=== PATIENT | female | born 1955 | race Two or more races ===

== ENCOUNTER 2016-09-13 21:42 | Emergency (ER) | payer SELFPAY ==
[~2016-09-13] VITALS: Ht 165.1 cm; Wt 56.7 kg
--- NOTE | 2016-09-13 21:45 | NUR ---
61 YO MALE BB RA FROM HOME, C/O GENERALIZED WEAKNESS X 1 WK. PT STATES SHE HAD AN EPISODE OF HEART PALPITATIONS, CALLED EMS FOR EVAL. SKIN WARM AND DRY, RR EVEN AND UNLABORED. PT AMBULATED TO ER BED WITH STEADY GAIT, AWAITING ORDERS FROM PROVIDER
[2016-09-13] MEDS ORDERED: BACL10TA PO (22:04)
[2016-09-13] MEDS ORDERED: HYDR25TA4 PO (22:04)
[2016-09-13] MEDS ORDERED: TRAM50TA2 PO (22:06)
[2016-09-13] MEDS ORDERED: CYAN500T4 PO (22:06)
[2016-09-13] MEDS ORDERED: DOCU-25 PO (22:06)
[2016-09-13] MEDS ORDERED: LORA10CA PO (22:06)
[2016-09-13] MEDS ORDERED: FLUO20CA36 PO (22:06)
[2016-09-13] MEDS ORDERED: HYDR-4076 PO (22:06)
[2016-09-13] MEDS ORDERED: AMLO10TA2 PO (22:06)
--- NOTE | 2016-09-13 22:10 | NUR ---
20G LEFT WRIST IV STARTED, BLOOD SAMPLE OBTAINED AND SENT TO LAB
[2016-09-13] MEDS ORDERED: IV NS 0.9% 1,000 ML ONE (23:09)
[2016-09-13] MEDS ORDERED: IV SET PRIMARY 1 EA INFUS.SET MC ONE (23:09)
[2016-09-13 23:17] LABS: BASOPHILS # (AUTO) 0.1 /CMM (0.0-0.2); BASOPHILS % (AUTO) 1.2 % (0.0-2.0); EOSINOPHILS # (AUTO) 0.1 /CMM (0.0-0.7); EOSINOPHILS % (AUTO) 1.4 % (0.0-6.0); HEMATOCRIT 41 % (33-45); HEMOGLOBIN 13.5 g/dL (11.5-14.8); LYMPHOCYTES # (AUTO) 2.5 /CMM (0.8-4.8); LYMPHOCYTES % (AUTO) 36.1 % (20.0-44.0); MEAN CORPUSCULAR HEMOGLOBIN 32 PG (26.0-33.0); MEAN CORPUSCULAR HGB CONC 33 g/dl (31.0-36.0); MEAN CORPUSCULAR VOLUME 96 fL (82-100); MONOCYTES # (AUTO) 0.5 /CMM (0.1-1.30); MONOCYTES % (AUTO) 6.9 % (2.0-12.0); NEUTROPHILS # (AUTO) 3.7 /CMM (1.8-8.9); NEUTROPHILS % (AUTO) 54.4 % (43.0-81.0); PLATELET COUNT (AUTO) 297 /CMM (150-450); RDW COEFFICIENT OF VARIATION 13.4 (11.5-15.0); RED BLOOD CELL COUNT(AUTO) 4.21 MIL/uL (4.0-5.2); WHITE BLOOD COUNT (AUTO) 6.8 K/uL (4.3-11.0)
[2016-09-13 23:27] LABS: CALCIUM, SERUM 8.6 mg/dL (8.5-10.1); CARBON DIOXIDE 24 mmol/L (21-32); CHLORIDE 98 mmol/L (98-107); CREATININE 0.6 mg/dL (0.6-1.3); GFR 101 mL/min (>60); GLUCOSE 81 mg/dL (74-106); POTASSIUM 3.9 mmol/L (3.5-5.1); SODIUM SERUM 136 mmol/L (136-145); UREA NITROGEN, BLOOD 7 mg/dL (7-18)
[2016-09-13] MEDS ORDERED: IV NS 0.9% 1,000 ML BAG IV ONE (23:30)
[2016-09-13 23:31] LABS: INR 0.89 (0.87-1.13); PROTHROMBIN TIME 9.4 SECS (9.5-12.7)
[2016-09-13 23:36] LABS: TROPONIN I < 0.017 ng/mL (0.00-0.056)
[2016-09-14 00:18] VITALS: BP 123/79
--- NOTE | 2016-09-14 00:18 | NUR ---
Patient discharged to home in stable condition. Written and verbal after care instructions given. Patient verbalizes understanding of instruction.IV removed. Catheter intact and site benign. Pressure and 4x4 applied to site. No bleeding noted. pt ambulatory with a steady gait VITAL SIGNS WITHIN NORMAL LIMITS.
== END 2016-09-14 00:19 | disposition home or self-care (01) ==
LOC: ER 21:46
DX: R07.89 Other chest pain (principal); I10 Essential (primary) hypertension; Z88.1 Allergy status to other antibiotic agents; Z88.8 Allergy status to other drugs, medicaments and biological substances
CPT/HCPCS: 36415; 71010; 80048; 83690; 84484; 85025; 85730; 93005; 96360; 99285; A4606; J7030; Z7610

== ENCOUNTER 2016-11-02 20:20 | Inpatient (IN) | payer MEDICAID ==
[~2016-11-02] VITALS: Ht 170.2 cm; Wt 61.7 kg
[2016-11-02 20:00] VITALS: BP 85/57
[~2016-11-02 20:20] MED LIST: AMLO10TA2 PO; BACL10TA PO; CYAN500T4 PO; DOCU-25 PO; FLUO20CA36 PO; HYDR-4076 PO; HYDR25TA4 PO; LORA10CA PO; TRAM50TA2 PO
--- NOTE | 2016-11-02 20:20 | NUR ---
61 YO FEMALE BB RA. PT IS ALERT X 3, STATES SHES BEEN FEELING WEAK AND DIZZY FOR THE PAST WEEK. PT DS TO ER BED, SKIN WARM AND DRY, RR EVEN AND UNLABORED. AWAITING ORDERS FROM VIRGILFILIBERTO
[2016-11-02] MEDS ORDERED: IV SET PRIMARY 1 EA INFUS.SET MC ONE (20:27)
[2016-11-02] MEDS ORDERED: IV NS 0.9% 1,000 ML ONE (20:27)
[2016-11-02] MEDS ORDERED: IV NS 0.9% 1,000 ML BAG IV ONE (20:30)
[2016-11-02] MEDS ORDERED: ONDANSETRON HCL/PF 4 MG/2 ML VIAL ONE (20:35)
[2016-11-02] MEDS ORDERED: LORAZEPAM INJ 2 MG/ML VIAL ONE (20:35)
--- NOTE | 2016-11-02 20:45 | NUR ---
MEDICATED PT ORDERED
[2016-11-02 20:46] LABS: BASOPHILS # (AUTO) 0.1 /CMM (0.0-0.2); BASOPHILS % (AUTO) 0.5 % (0.0-2.0); EOSINOPHILS % (AUTO) 0.4 % (0.0-6.0); HEMATOCRIT 39 % (33-45); HEMOGLOBIN 13.6 g/dL (11.5-14.8); LYMPHOCYTES # (AUTO) 1.7 /CMM (0.8-4.8); LYMPHOCYTES % (AUTO) 13.2 % (20.0-44.0); MEAN CORPUSCULAR HEMOGLOBIN 34 PG (26.0-33.0); MEAN CORPUSCULAR HGB CONC 35 g/dl (31.0-36.0); MEAN CORPUSCULAR VOLUME 97 fL (82-100); MONOCYTES # (AUTO) 0.7 /CMM (0.1-1.30); MONOCYTES % (AUTO) 5.7 % (2.0-12.0); NEUTROPHILS % (AUTO) 80.2 % (43.0-81.0); PLATELET COUNT (AUTO) 370 /CMM (150-450); RDW COEFFICIENT OF VARIATION 12.2 (11.5-15.0); WHITE BLOOD COUNT (AUTO) 12.5 K/uL (4.3-11.0)
[2016-11-02] MEDS ORDERED: LORAZEPAM INJ 2 MG/ML VIAL IV ONE (21:00)
[2016-11-02] MEDS ORDERED: ONDANSETRON HCL/PF - ER 4 MG/2 ML VIAL IV ONE (21:00)
[2016-11-02 21:06] LABS: INR 0.94 (0.87-1.13)
--- NOTE | 2016-11-02 21:10 | NUR ---
PT TRANSPORTED TO CT VIA [facility]
[2016-11-02 21:14] LABS: ALCOHOL, BLOOD 4 mg/dL (0-0)
[2016-11-02 21:20] LABS: ALANINE AMINOTRANSFERASE 152 U/L (12-78); ALBUMIN 3.8 g/dL (3.4-5.0); ALKALINE PHOSPHATASE 109 U/L (46-116); ASPARTATE AMINOTRANSFERASE 102 U/L (15-37); BILIRUBIN,DIRECT 0.1 mg/dL (0.0-0.2); BILIRUBIN,TOTAL 0.4 mg/dL (0.2-1.0); CALCIUM, SERUM 8.8 mg/dL (8.5-10.1); CARBON DIOXIDE 23 mmol/L (21-32); CHLORIDE 81 mmol/L (98-107); CREATININE 0.8 mg/dL (0.6-1.3); GLUCOSE 107 mg/dL (74-106); SODIUM SERUM 122 mmol/L (136-145); TOTAL PROTEIN, SERUM 6.7 g/dL (6.4-8.2); UREA NITROGEN, BLOOD 5 mg/dL (7-18)
[2016-11-02 21:22] LABS: TROPONIN I < 0.017 ng/mL (0.00-0.056)
[2016-11-02 21:23] LABS: POTASSIUM 2.2 mmol/L (3.5-5.1)
[2016-11-02] MEDS ORDERED: IV PREMIX 0.45% NS + KCL 1,000 ML IV ONE (21:28)
[2016-11-02] MEDS ORDERED: Magnesium 1GM/D5W 100ML PREMIX 100 ML IV ONE ×2 (21:30→21:41)
[2016-11-02] MEDS ORDERED: IV PREMIX D5 1/2NS + KCL 1,000 ML IV ONE (21:40)
[2016-11-02] MEDS ORDERED: HYDROCODONE/APAP 5/325MG 1 EACH TABLET ONE (21:40)
[2016-11-02] MEDS ORDERED: IV SET PRIMARY PUMP SET 1 EA INFUS.SET MC ONE (21:40)
--- NOTE | 2016-11-02 21:44 | NUR ---
DR. YVONNE GONZALEZ
[2016-11-02 21:47] LABS: CREATINE KINASE, TOTAL 43 U/L (26-192)
[2016-11-02] MEDS ORDERED: HYDROCODONE/APAP 5/325MG 1 EACH TABLET PO ONE (22:00)
--- NOTE | 2016-11-02 22:02 | NUR ---
PT TRANSPORTED TO TELE BED BY RN WITHOUT INCIDENT
[2016-11-02 22:04] VITALS: BP 88/57
--- NOTE | 2016-11-02 22:04 | NUR ---
HEAD CONTROL CLERK NOTES: RECEIVED PT FROM ED AND IS A/O X4. PT CAME WITH IV ON R HAND #20G AND IS BEING INFUSED WITH IV PREMIX 1/2 NS + 20 MEQ KCL 1,000ML AT 125ML/HR. CALL LIGHT WITHIN PT'S REACH. BED KEPT IN LOCKED, LOWEST POSITION, AND SIDE RAILS X 2 UP. NO SIGNS OR SYMPTOMS OF DISTRESS NOTED AT THIS TIME. WILL CONTINUE TO MONITOR PT. PT IS ON TELE AND IS SINUS RHYTHM 74.
[2016-11-02 22:30] VITALS: BP 85/57
[2016-11-02] MEDS ORDERED: MAG HYDROX/AL HYDROX/SIMETH 30 ML UDC PO PRN (22:30)
[2016-11-02] MEDS ORDERED: ZOLPIDEM TARTRATE 5 MG TABLET PO PRN (22:30)
[2016-11-02] MEDS ORDERED: Z GUARD REMEDY 2 OZ OINT TP PRN (22:30)
[2016-11-02] MEDS ORDERED: BACLOFEN (10 MG) 10 MG TABLET PO PRN (22:30)
[2016-11-02] MEDS ORDERED: ENOXAPARIN SODIUM 40 MG/0.4 ML DISP.SYRIN SQ SCH (22:30)
[2016-11-02] MEDS ORDERED: ACETAMINOPHEN 325 MG TABLET PO PRN (22:30)
[2016-11-02] MEDS ORDERED: MAGNESIUM HYDROXIDE 30 ML UDC PO PRN (22:30)
[2016-11-02] MEDS ORDERED: LORAZEPAM 1 MG TABLET ONE (22:46)
[2016-11-02] MEDS: LORAZEPAM 1 MG TABLET PO PRN (22:55)
[2016-11-02] MEDS ORDERED: ENOXAPARIN SODIUM 40 MG/0.4 ML DISP.SYRIN SQ ONE (23:40)
[2016-11-03] VITALS (7 sets, daily range): BP systolic 92–126; BP diastolic 47–74
[2016-11-03] MEDS ORDERED: hydrALAZINE HCL 25 MG TABLET PO PRN
--- NOTE | 2016-11-03 00:47 | NUR ---
APPLIANCE TECHNICIAN NOTES: IV ON R HAND #20G WAS FOUND DISLODGED. NO INFILTRATION OR REDNESS NOTED. IV ON L HAND #22G WAS STARTED AND IS PATENT AND INTACT. IT IS BEING INFUSED WITH IV PREMIX 1/2 NS + 20MEQ KCL 1,000ML AT 125ML/HR. WILL CONTINUE TO MONITOR PT.
[2016-11-03] MEDS ORDERED: HYDROCODONE/APAP 5/325MG 1 EACH TABLET ONE (02:59)
[2016-11-03] MEDS: HYDROCODONE/APAP 5/325MG 1 EACH TABLET PO PRN ×3 (03:05→14:36)
--- NOTE | 2016-11-03 03:05 | NUR ---
AUTOMOTIVE LIGHT MECHANIC NOTES: PT COMPLAINED OF 7/10 HEAD AND NAPE PAIN. PT REQUESTED FOR PAIN MEDICATION. PT WAS ADMINISTERED NORCO 5-325MG. WILL CONTINUE TO MONITOR PT.
[2016-11-03] MEDS: TRAMADOL HCL 50 MG TABLET PO SCH ×3 (05:00→21:00)
--- NOTE | 2016-11-03 05:00 | NUR ---
PROVINCE ARCHIVIST NOTES: PT REFUSED THE TRAMADOL AND ALSO REPORTED THAT SHE MAY BE ALLERGIC TO IT D/T PAST EXPERIENCE.
[2016-11-03] MEDS ORDERED: TRAMADOL HCL 50 MG TABLET ONE (05:53)
[2016-11-03] MEDS ORDERED: LORAZEPAM 1 MG TABLET ONE (06:04)
[2016-11-03] MEDS: LORAZEPAM 1 MG TABLET PO PRN ×3 (06:14→20:46)
--- NOTE | 2016-11-03 06:14 | NUR ---
BIZTALK DEVELOPER NOTES: PT REQUESTED FOR HER ATIVAN D/T ANXIETY. WILL CONTINUE TO MONITOR PT.
[2016-11-03 06:46] LABS: BASOPHILS # (AUTO) 0.1 /CMM (0.0-0.2); EOSINOPHILS # (AUTO) 0.1 /CMM (0.0-0.7); EOSINOPHILS % (AUTO) 0.8 % (0.0-6.0); HEMATOCRIT 35 % (33-45); HEMOGLOBIN 12.4 g/dL (11.5-14.8); LYMPHOCYTES # (AUTO) 1.4 /CMM (0.8-4.8); LYMPHOCYTES % (AUTO) 17.3 % (20.0-44.0); MEAN CORPUSCULAR HEMOGLOBIN 34 PG (26.0-33.0); MEAN CORPUSCULAR HGB CONC 35 g/dl (31.0-36.0); MEAN CORPUSCULAR VOLUME 97 fL (82-100); MONOCYTES # (AUTO) 0.4 /CMM (0.1-1.30); MONOCYTES % (AUTO) 5.5 % (2.0-12.0); NEUTROPHILS % (AUTO) 75.4 % (43.0-81.0); PLATELET COUNT (AUTO) 321 /CMM (150-450); RDW COEFFICIENT OF VARIATION 12.3 (11.5-15.0); RED BLOOD CELL COUNT(AUTO) 3.63 MIL/uL (4.0-5.2)
[2016-11-03 07:06] LABS: ALBUMIN 3.2 g/dL (3.4-5.0); BILIRUBIN,TOTAL 0.4 mg/dL (0.2-1.0); CALCIUM, SERUM 7.9 mg/dL (8.5-10.1); CREATININE 0.8 mg/dL (0.6-1.3); MAGNESIUM 1.7 mg/dL (1.8-2.4); PHOSPHORUS 1.8 mg/dL (2.5-4.9); TOTAL PROTEIN, SERUM 5.7 g/dL (6.4-8.2)
[2016-11-03] MEDS: PANTOPRAZOLE 40 MG TABLET.DR PO SCH (07:30)
--- NOTE | 2016-11-03 07:35 | NUR ---
WEAPONS DESIGNER CLOSING NOTES: ALL NEEDS WERE ATTENDED AND ANTICIPATED FOR. NO SIGNS OR SYMPTOMS OF DISTRESS NOTED AT THIS TIME. PT'S IV IS PATENT AND INTACT. PT IS ON TELE AND IS ON SINUS RHYTHM 70. CALL LIGHT WITHIN PT'S REACH. BED KEPT IN LOCKED, LOWEST POSITION, AND SIDE RAILS X 2 UP. ENDORSED TO AM NURSE FOR BERTRAND.
--- NOTE | 2016-11-03 07:40 | NUR ---
RECEIVED PT. ALERT AND ORIENTED X 4,A LITTLE SLUGGISH.ON RM. AIR VS STABLE.
[2016-11-03 07:42] LABS: POTASSIUM 2.2 mmol/L (3.5-5.1)
[2016-11-03] MEDS ORDERED: IV NS 0.9% 250 ML IV ONE (07:54)
[2016-11-03] MEDS ORDERED: IV SET PRIMARY PUMP SET 1 EA INFUS.SET MC ONE ×2 (07:55→10:37)
[2016-11-03] MEDS: MULTIVITAMINS W-MINERALS 1 TAB TABLET PO SCH (08:58)
[2016-11-03] MEDS: CYANOCOBALAMIN 500 MCG TABLET PO SCH (08:58)
[2016-11-03] MEDS: FOLIC ACID 1 MG TABLET PO SCH (08:59)
[2016-11-03] MEDS: FLUOXETINE HCL 20 MG CAPSULE PO SCH (08:59)
[2016-11-03] MEDS ORDERED: AMLODIPINE BESYLATE 10 MG TABLET PO SCH (09:00)
[2016-11-03] MEDS ORDERED: hydrALAZINE HCL 25 MG TABLET PO SCH (09:00)
[2016-11-03] MEDS ORDERED: HYDROCHLOROTHIAZIDE 25 MG TABLET PO SCH (09:00)
[2016-11-03] MEDS: METOPROLOL TARTRATE 25 MG TABLET PO SCH ×2 (09:00→21:00)
[2016-11-03] MEDS: THIAMINE HCL 100 MG TABLET PO SCH (09:01)
[2016-11-03] MEDS: DOCUSATE SODIUM 100 MG CAPSULE PO SCH ×2 (09:01→17:00)
[2016-11-03] MEDS ORDERED: SECONDARY IV SET 1 EA INFUS.SET MC ONE ×3 (09:04→17:39)
[2016-11-03] MEDS: POTASSIUM CL. PREMIX PERIPHER. 50 ML IV SCH ×4 (09:23→13:39)
[2016-11-03] MEDS: LORATADINE 10 MG TABLET PO SCH ×2 (09:23→09:30)
[2016-11-03] MEDS: ONDANSETRON HCL/PF 4 MG/2 ML VIAL IVP PRN (09:34)
[2016-11-03] MEDS: Potassium Chloride 20 MEQ in IV NS 0.9% 1,000 ML IV PRN (10:44)
[2016-11-03] MEDS ORDERED: Magnesium 1GM/D5W 100ML PREMIX 100 ML IV SCH (13:30)
[2016-11-03] MEDS ORDERED: Sodium Phosphate 15 MMOL in IV D5W 250 ML IV ONE (13:30)
[2016-11-03] MEDS: Magnesium 1GM/D5W 100ML PREMIX 100 ML IV SCH ×2 (15:30→16:37)
--- NOTE | 2016-11-03 16:00 | NUR ---
IV REPLACEMENT OF POTASSIUM,PHOSPHOROUS,AND MG.UA SENT PER ORDERS.PT. UP AND DOWN ALL DAY WITH USE OF BSC.
--- NOTE | 2016-11-03 18:00 | NUR ---
MED. X 2 FOR PAIN WITH NORCO AND X 1 WITH ATIVAN.
--- NOTE | 2016-11-03 19:20 | NUR ---
TELE/RN OPENING NOTES PT ASLEEP, EASILY AROUSABLE TO NAME. A/OX3. ON ROOM AIR WITH NO S/S OF SOB OR DISTRESS NOTED. ON TELE MONITOR READY SR WITH HR AT 82. BREATHING EVEN AND UNLABORED. DENIES PAIN AT THIS TIME. IV TO LAC PATENT AND INTACT RUNNING IVF ORDERED. BED IN LOW/LOCKED POSITION WITH CALL LIGHT IN REACH AND BED ALARM ON. BED RAILS UPX2. WILL CONTINUE TO MONITOR
--- NOTE | 2016-11-03 20:45 | NUR ---
TELE/RN NOTES PT SHAKING AND HAVING ANXIETY. ADMINISTERED PRN ATIVAN 1MG ORDERED.
[2016-11-03] MEDS: ENOXAPARIN SODIUM 40 MG/0.4 ML DISP.SYRIN SQ SCH (21:47)
[2016-11-04] VITALS: BP 109/66
[2016-11-04] MEDS: HYDROCODONE/APAP 5/325MG 1 EACH TABLET PO PRN ×3 (00:36→17:19)
--- NOTE | 2016-11-04 00:44 | NUR ---
TELE/RN NOTES PT COMPLAINING OF PAIN 7/10 TO RIGHT LOWER BACK. ADMINISTERED PRN NORCO 5-325 ORDERED. BP PRIOR TO [id number]/66, HR=77 WILL MONITOR FOR EFFECTIVENESS
[2016-11-04 02:40] LABS: CREATININE, URINE 14.5 MG/DL (30.0-125.0); URINE SODIUM, RANDOM < 5 mmol/l (40-220)
[2016-11-04 02:53] LABS: OSMOLALITY,URINE 59 mOS/kg (340-1090)
[2016-11-04] MEDS ORDERED: IV PREMIX NS +20MEQ KCL 1 L IV ONE (03:50)
[2016-11-04] MEDS: Potassium Chloride 20 MEQ in IV NS 0.9% 1,000 ML IV PRN ×2 (03:58→14:46)
[2016-11-04 04:00] VITALS: BP 95/53
--- NOTE | 2016-11-04 04:02 | NUR ---
TELE/RN NOTES UNABLE TO SCAN IV SOLUTION 20MEQ KCL IN NS. OVERRIDE BY NURSING CLINICAL WRITER. DOUBLE CHECKED IVF TO MD ORDER FOR VERIFICATION PRIOR TO ADMINISTRATION Addendum: 11/04/16 at 0541 by ROSIO MORENO RN NEW IV INSERTED TO RIGHT FA #[id number]. GOOD BLOOD RETURN NOTED. IVF RESTARTED.
[2016-11-04] MEDS: TRAMADOL HCL 50 MG TABLET PO SCH ×3 (05:00→21:21)
--- NOTE | 2016-11-04 06:44 | NUR ---
MS/RN CLOSING NOTES PT ASLEEP, AROUSABLE TO NAME. A/OX3, ON ROOM AIR WITH NO S/S OF DISTRESS. DENIES PAIN AT THIS TIME. BREATHING EVEN AND UNLABORED. ASSISTED PT TO BSC DURING SHIFT. IV TO RFA PATENT AND INTACT RUNNING IVF ORDERED. MADE PT COMFORTABLE THROUGHOUT SHIFT. ALL NEEDS MET AND ATTENDED. BED IN LOW/LOCKED POSITION, CALL LIGHT IN REACH AND BED ALARM ON FOR SAFETY. BED RAILS UPX2. WILL ENDORSE TO AM SHIFT BERTRAND.
[2016-11-04 08:00] VITALS: BP 106/57
[2016-11-04 08:09] LABS: BASOPHILS % (AUTO) 0.4 % (0.0-2.0); EOSINOPHILS # (AUTO) 0.1 /CMM (0.0-0.7); HEMATOCRIT 34 % (33-45); HEMOGLOBIN 12.2 g/dL (11.5-14.8); LYMPHOCYTES # (AUTO) 1.1 /CMM (0.8-4.8); LYMPHOCYTES % (AUTO) 18.7 % (20.0-44.0); MEAN CORPUSCULAR HEMOGLOBIN 35 PG (26.0-33.0); MEAN CORPUSCULAR HGB CONC 36 g/dl (31.0-36.0); MEAN CORPUSCULAR VOLUME 98 fL (82-100); MONOCYTES # (AUTO) 0.4 /CMM (0.1-1.30); NEUTROPHILS # (AUTO) 4.4 /CMM (1.8-8.9); NEUTROPHILS % (AUTO) 72.9 % (43.0-81.0); PLATELET COUNT (AUTO) 312 /CMM (150-450); RDW COEFFICIENT OF VARIATION 12.2 (11.5-15.0); RED BLOOD CELL COUNT(AUTO) 3.47 MIL/uL (4.0-5.2); WHITE BLOOD COUNT (AUTO) 6.1 K/uL (4.3-11.0)
[2016-11-04 08:32] LABS: THYROID STIMULATING HORMONE 2.136 uIU/mL (0.358-3.74)
[2016-11-04 08:42] LABS: CALCIUM, SERUM 8.4 mg/dL (8.5-10.1); CREATININE 0.7 mg/dL (0.6-1.3); MAGNESIUM 1.9 mg/dL (1.8-2.4); PHOSPHORUS 2.1 mg/dL (2.5-4.9); POTASSIUM 3.1 mmol/L (3.5-5.1)
[2016-11-04] MEDS: NICOTINE PATCH (14MG) 14 MG PATCH.TD24 TD SCH (09:28)
[2016-11-04] MEDS: THIAMINE HCL 100 MG TABLET PO SCH (09:29)
[2016-11-04] MEDS: CYANOCOBALAMIN 500 MCG TABLET PO SCH (09:29)
[2016-11-04] MEDS: ONDANSETRON HCL/PF 4 MG/2 ML VIAL IVP PRN ×2 (09:29→18:27)
[2016-11-04] MEDS: DOCUSATE SODIUM 100 MG CAPSULE PO SCH ×2 (09:30→17:17)
[2016-11-04] MEDS: FOLIC ACID 1 MG TABLET PO SCH (09:30)
[2016-11-04] MEDS: ASPIRIN 325 MG TABLET PO SCH (09:30)
[2016-11-04] MEDS: MULTIVITAMINS W-MINERALS 1 TAB TABLET PO SCH (09:30)
[2016-11-04] MEDS: PANTOPRAZOLE 40 MG TABLET.DR PO SCH (09:30)
[2016-11-04] MEDS: FLUOXETINE HCL 20 MG CAPSULE PO SCH (09:31)
[2016-11-04] MEDS: METOPROLOL TARTRATE 25 MG TABLET PO SCH ×2 (09:31→21:21)
[2016-11-04] MEDS ORDERED: K PHOS NEUTRAL 250 MG TABLET PO ONE (12:00)
[2016-11-04] MEDS: LORAZEPAM 1 MG TABLET PO PRN (12:46)
--- NOTE | 2016-11-04 14:40 | NUR ---
Social service consult requested by MARIE Daniel for outpatient referrals for Alcohol abuse. SW met with pt. bedside. Pt. is alert and oriented x 3. Pt. informed SW she resides alone at [address] [place] [address], [address], [place] [address]. Pt. has a daughter Lily Carpio that she visits at times. 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 Pt. informed SW she drinks approximately a bottle of white wine (Chardonnay) per day. Pt. has been drinking alcohol for the past 30 years. Pt. states she completed detox at [facility] in May 2016 and did not complete the inpatient program. Pt. has been to Alcohol anonymous meeting in the past as well. Pt. denies any drug use. Pt. suffers from sever anxiety and depression and takes 20 mg of Prozac daily. Pt. denies suicidal/homicidal ideations at this time and denies any auditory hallucinations. Pt. states she has visual hallucinations such as sees a person standing at times when she moves too fast. Pt. has had suicidal thoughts in the past but has never acted on those thoughts. SW offered pt. resources for outpatient and inpatient alcohol programs such as [facility] ; [facility] ; [facility] ; [facility] and mental health referrals such as [facility] ; [facility] , [facility] ; Alcohol Anonymous ;& National Suicide Prevention Hotline , which pt. accepted.
[2016-11-04 16:00] VITALS: BP 120/70
--- NOTE | 2016-11-04 19:35 | NUR ---
MS/CARD PUNCHING MACHINE OPERATOR; RECEIVED PT IN BED SITTING. DENIES PAIN. BREATHING NON LABORED AND EVEN. PT SAID SHE IS MUCH BETTER TODAY. IVF ON PROGRESS OF NS WITH 20 MEQ KCL AT 100 ML / HOUR. BED ON LOWER POSITION AND LOCKED FOR SAFETY. UPPER PART OF BED SIDE RAILS ARE UP FOR SAFETY. PT INSTRUCTED TO CALL FOR HELP AND CALL LIGHT WITHIN REACH. WILL CONTINUE TO MONITOR.
[2016-11-04 20:00] VITALS: BP 111/62
[2016-11-04] MEDS: ENOXAPARIN SODIUM 40 MG/0.4 ML DISP.SYRIN SQ SCH (21:25)
[2016-11-05] MEDS: Potassium Chloride 20 MEQ in IV NS 0.9% 1,000 ML IV PRN ×2 (00:29→10:56)
[2016-11-05] MEDS: TRAMADOL HCL 50 MG TABLET PO SCH ×3 (04:54→22:22)
--- NOTE | 2016-11-05 07:00 | NUR ---
MS/OIL CHANGE TECHNICIAN; SLEPT AT GOOD INTERVALS. WAS C/O HEADACHE PT ON RT ULTRAM 50 MG PO Q 8 GIVEN. IVF ON PROGRESS. BREATHING NON LABORED. CONTINUE TO MONITOR. CALL LIGHT WITHIN REACH. WILL ENDORSE TO THE DAY SHIFT NURSE.
--- NOTE | 2016-11-05 07:20 | NUR ---
MS RN OPENING NOTES RECEIVED PT. FROM NIGHTSHIFT NURSE IN STABLE CONDITION. PT IS A/O X3. NO SOB OR SIGNS OF DISTRESS NOTED. BREATHING IS EVEN AND UNLABORED. DENIES ANY PAIN AT THIS TIME. IV PRESENT ON LEFT HAND 20 G PATENT AND INTACT INFUSING 20MEQ KCL WITH NS @ 100ML/HR. PT. TOLERATING INFUSION WELL. NO REDNESS OR SIGNS OF INFILTRATION NOTED. BED IN LOW LOCKED POSITION, SIDE RAILS UP X2, CALL LIGHT WITHIN REACH. WILL CONTINUE TO MONITOR.
[2016-11-05 07:23] LABS: BASOPHILS % (AUTO) 0.6 % (0.0-2.0); EOSINOPHILS # (AUTO) 0.1 /CMM (0.0-0.7); EOSINOPHILS % (AUTO) 1.7 % (0.0-6.0); HEMATOCRIT 31 % (33-45); HEMOGLOBIN 10.9 g/dL (11.5-14.8); LYMPHOCYTES # (AUTO) 1.1 /CMM (0.8-4.8); LYMPHOCYTES % (AUTO) 15.6 % (20.0-44.0); MEAN CORPUSCULAR HEMOGLOBIN 34 PG (26.0-33.0); MEAN CORPUSCULAR HGB CONC 35 g/dl (31.0-36.0); MEAN CORPUSCULAR VOLUME 98 fL (82-100); MONOCYTES # (AUTO) 0.5 /CMM (0.1-1.30); MONOCYTES % (AUTO) 7.5 % (2.0-12.0); NEUTROPHILS # (AUTO) 5.2 /CMM (1.8-8.9); NEUTROPHILS % (AUTO) 74.6 % (43.0-81.0); PLATELET COUNT (AUTO) 291 /CMM (150-450)
[2016-11-05 07:35] LABS: CREATININE 0.7 mg/dL (0.6-1.3); MAGNESIUM 1.5 mg/dL (1.8-2.4); PHOSPHORUS 2.1 mg/dL (2.5-4.9); POTASSIUM 3.6 mmol/L (3.5-5.1)
[2016-11-05 08:00] VITALS: BP 130/84
[2016-11-05] MEDS: DOCUSATE SODIUM 100 MG CAPSULE PO SCH ×2 (08:41→16:13)
[2016-11-05] MEDS: ASPIRIN 325 MG TABLET PO SCH (08:41)
[2016-11-05] MEDS: MULTIVITAMINS W-MINERALS 1 TAB TABLET PO SCH (08:41)
[2016-11-05] MEDS: CYANOCOBALAMIN 500 MCG TABLET PO SCH (08:41)
[2016-11-05] MEDS: FLUOXETINE HCL 20 MG CAPSULE PO SCH (08:41)
[2016-11-05] MEDS: PANTOPRAZOLE 40 MG TABLET.DR PO SCH (08:42)
[2016-11-05] MEDS: NICOTINE PATCH (14MG) 14 MG PATCH.TD24 TD SCH (08:42)
[2016-11-05] MEDS: FOLIC ACID 1 MG TABLET PO SCH (08:42)
[2016-11-05] MEDS: THIAMINE HCL 100 MG TABLET PO SCH (08:42)
[2016-11-05] MEDS: METOPROLOL TARTRATE 25 MG TABLET PO SCH ×2 (08:42→22:20)
[2016-11-05] MEDS: LORATADINE 10 MG TABLET PO SCH (08:42)
[2016-11-05] MEDS ORDERED: Sodium Phosphate 15 MMOL in IV D5W 250 ML IV ONE (10:30)
[2016-11-05] MEDS ORDERED: SECONDARY IV SET 1 EA INFUS.SET MC ONE (10:39)
[2016-11-05] MEDS: HYDROCODONE/APAP 5/325MG 1 EACH TABLET PO PRN ×2 (10:56→14:59)
[2016-11-05] MEDS: ONDANSETRON HCL/PF 4 MG/2 ML VIAL IVP PRN (10:56)
[2016-11-05] MEDS: Magnesium 1GM/D5W 100ML PREMIX 100 ML IV SCH ×2 (10:56→12:00)
[2016-11-05 16:00] VITALS: BP 148/82
[2016-11-05] MEDS ORDERED: ALBUTEROL HALF STRENGTH 1.25 MG/3 ML VIAL.NEB NEB PRN (16:00)
--- NOTE | 2016-11-05 18:45 | NUR ---
MS RN CLOSING NOTES PT. IN STABLE CONDITION. ALL NEEDS METS DURING SHIFT AND ORDERS CARRIED OUT ACCORDINGLY. NO ACUTE CHANGES IN CONDITION DURING SHIFT. ALL SAFTEY MEASURES IN PLACE. WILL ENDORSE TO NIGHTSHIFT NURSE FOR BERTRAND
--- NOTE | 2016-11-05 19:25 | NUR ---
MS/COAL EQUIPMENT OPERATOR; RECEIVED PT ON THE BEDSIDE COMMODE VOIDING. DENIES PAIN AT THIS TIME. IV SITE SLIGHT SWOLLEN AND RED WITH SOME PAIN. BED ON LOWER POSITION AND LOCKED FOR SAFETY. SIDE RAILS X 2 UP FOR SAFETY. PT REMINDED TO CALL FOR HELP. CALL LIGHT WITHIN REACH. WILL CONTINUE TO MONITOR.
--- NOTE | 2016-11-05 19:50 | NUR ---
MS/MAINTENANCE MECHANIC TECHNICIAN; RN DID TRY TO START NEW IV LINE BUT NO SUCCESS.
[2016-11-05 20:00] VITALS: BP 159/92
[2016-11-05] MEDS: LORAZEPAM 1 MG TABLET PO PRN (20:14)
--- NOTE | 2016-11-05 20:15 | NUR ---
MS/NON LINEAR EDITOR; PT REQUESTING AN ATIVAN ; ANXIOUS. ATIVAN 1 MG PO Q2 PRN GIVEN ORDERED.
--- NOTE | 2016-11-05 21:00 | NUR ---
MS/SALESPERSON HEARING AIDS; TOY DEPARTMENT MANAGER DID TRY TO START A NEW IV LINE STILL NO SUCCESS. I INFORMED THE PRINTING ROLLER HANDLER.
[2016-11-05 22:00] VITALS: BP 143/87
[2016-11-05] MEDS: ENOXAPARIN SODIUM 40 MG/0.4 ML DISP.SYRIN SQ SCH (22:26)
--- NOTE | 2016-11-05 22:30 | NUR ---
MS/DIESEL MECHANIC APPRENTICE; PT REFUSED TO RESUMED IVF SINCE SHE SAID THE MD TOLD HER PLANNING FOR DC TOMORROW. AND ALSO PT WANTS TO TALK TO THE CHARGE NURSE. I INFORMED BETO CAMPO AND SHE WENT TO THE PT;S ROOM AND TALKED TO HER. PT WANTS TO REMOVE THE HL ON RFA; DONE.
--- NOTE | 2016-11-05 23:30 | NUR ---
MS/OR MANAGER; DR. MILES WAS INFORMED PT REFUSED TO RESUME IVF AND ALSO INFORMED PT IV LINE IS INFILTRATED.I ALSO ASKED DR. MILES AN ORDER FOR ZOFRAN PO ANND HE ORDERED IT.
[2016-11-06] MEDS ORDERED: ONDANSETRON 4 MG TAB.RAPDIS SL PRN
--- NOTE | 2016-11-06 01:45 | NUR ---
MS/CITRUS PICKER; PT CALLED HAVING SORE THROAT. TYLENOL 650 MG PO Q6 PRN GIVEN.
[2016-11-06] MEDS: TRAMADOL HCL 50 MG TABLET PO SCH ×2 (06:00→06:16)
--- NOTE | 2016-11-06 07:03 | NUR ---
MS/CERTIFIED DIALYSIS TECHNICIAN; PT SLEPT ON AND OFF. VOIDING. BREATHING NON LABORED. CONTINUE TO MONITOR. WILL ENDORSE TO THE DAY SHIFT NURSE.
--- NOTE | 2016-11-06 07:28 | NUR ---
MS RN INITIAL NOTES REPORT RECEIVED AT THE BEDSIDE. PATIENT IS RESTING COMFORTABLY IN BED. NO SOB OR DISTRESS NOTED AT THIS TIME. PATIENT DENIES PAIN. BED IN A LOW POSITION, CALL LIGHT WITHIN PATIENT REACH. WILL CONTINUE TO MONITOR.
[2016-11-06 08:00] VITALS: BP 137/87
[2016-11-06 08:04] LABS: BASOPHILS # (AUTO) 0.1 /CMM (0.0-0.2); BASOPHILS % (AUTO) 0.9 % (0.0-2.0); EOSINOPHILS # (AUTO) 0.1 /CMM (0.0-0.7); EOSINOPHILS % (AUTO) 1.3 % (0.0-6.0); HEMATOCRIT 32 % (33-45); HEMOGLOBIN 11.1 g/dL (11.5-14.8); LYMPHOCYTES # (AUTO) 1.2 /CMM (0.8-4.8); LYMPHOCYTES % (AUTO) 11.4 % (20.0-44.0); MEAN CORPUSCULAR HEMOGLOBIN 35 PG (26.0-33.0); MEAN CORPUSCULAR HGB CONC 35 g/dl (31.0-36.0); MEAN CORPUSCULAR VOLUME 100 fL (82-100); MONOCYTES # (AUTO) 0.9 /CMM (0.1-1.30); MONOCYTES % (AUTO) 8.7 % (2.0-12.0); NEUTROPHILS # (AUTO) 8.5 /CMM (1.8-8.9); NEUTROPHILS % (AUTO) 77.7 % (43.0-81.0); PLATELET COUNT (AUTO) 276 /CMM (150-450); RED BLOOD CELL COUNT(AUTO) 3.21 MIL/uL (4.0-5.2)
[2016-11-06] MEDS: NICOTINE PATCH (14MG) 14 MG PATCH.TD24 TD SCH (08:21)
[2016-11-06] MEDS: FLUOXETINE HCL 20 MG CAPSULE PO SCH (08:22)
[2016-11-06] MEDS: THIAMINE HCL 100 MG TABLET PO SCH (08:22)
[2016-11-06] MEDS: DOCUSATE SODIUM 100 MG CAPSULE PO SCH (08:22)
[2016-11-06] MEDS: CYANOCOBALAMIN 500 MCG TABLET PO SCH (08:22)
[2016-11-06] MEDS: ASPIRIN 325 MG TABLET PO SCH (08:22)
[2016-11-06] MEDS: MULTIVITAMINS W-MINERALS 1 TAB TABLET PO SCH (08:22)
[2016-11-06] MEDS: LORATADINE 10 MG TABLET PO SCH (08:22)
[2016-11-06] MEDS: PANTOPRAZOLE 40 MG TABLET.DR PO SCH (08:22)
[2016-11-06] MEDS: FOLIC ACID 1 MG TABLET PO SCH (08:22)
[2016-11-06 08:23] VITALS: BP 137/87
[2016-11-06] MEDS: METOPROLOL TARTRATE 25 MG TABLET PO SCH (08:23)
[2016-11-06 08:38] LABS: CALCIUM, SERUM 8.4 mg/dL (8.5-10.1); CREATININE 0.7 mg/dL (0.6-1.3); MAGNESIUM 1.4 mg/dL (1.8-2.4)
[2016-11-06] MEDS ORDERED: METO25TA20 PO (11:23)
[2016-11-06] MEDS ORDERED: ASPI325T2 PO (11:23)
[2016-11-06] MEDS ORDERED: MAGNESIUM OXIDE 400 MG TABLET PO ONE (11:30)
--- NOTE | 2016-11-06 12:26 | NUR ---
MS PAPER STACKER NOTE DISCHARGE INSTRUCTIONS GIVEN TO THE PATIENT AND ABLE TO UNDERSTAND. ALL PAPERWORK SIGNED AND BELONGINGS ACCOUNTED FOR. PRESCRIPTIONS GIVEN TO THE PATIENT. FLU AND PNE VACCINES NOT GIVEN PATIENT IS LESS THAN 64 YEARS OLD AND OUT OF SEASON. PATIENT REFUSED DISCHARGE PHOTOS, STATS "I JUST NEED TO GET OUT OF HERE, I DON'T HAVE TIME FOR THAT." EXPLAINED TO THE PATIENT THE IMPORTANCE BUT SHE STILL REFUSES. NO SOB OR DISTRESS AT THIS TIME. PATIENT DENIES PAIN. PATIENT LEFT IN STABLE CONDITION, VIA WHEEL CHAIR, ACCOMPANIED BY HIMA BERNAL. PATIENT DISCHARGE TO HOME VIA [facility]AXI.
== END 2016-11-06 12:19 | disposition home or self-care (01) | DRG 201 ==
LOC: ER 20:21 → TELE 21:59 → MED 11-04 10:05
PROVIDERS: ADMIT Family Medicine; ATTEND Family Medicine
DX: I48.0 Paroxysmal atrial fibrillation (principal); E87.1 Hypo-osmolality and hyponatremia; K70.9 Alcoholic liver disease, unspecified; I10 Essential (primary) hypertension; F10.239 Alcohol dependence with withdrawal, unspecified; Y90.0 Blood alcohol level of less than 20 mg/100 ml; F17.210 Nicotine dependence, cigarettes, uncomplicated; R29.6 Repeated falls; D72.829 Elevated white blood cell count, unspecified; E83.39 Other disorders of phosphorus metabolism; E83.42 Hypomagnesemia; E86.0 Dehydration; E87.6 Hypokalemia; Z79.899 Other long term (current) drug therapy; E86.9 Volume depletion, unspecified; Z71.6 Tobacco abuse counseling
CPT/HCPCS: 36415; 70450-TC; 71010-TC; 80048-TC; 80053-TC; 80061-TC; 80076-TC; 82550-TC; 82570-TC; 83735-TC; 83935-TC; 84100-TC; 84300-TC; 84443-TC; 84484-TC; 85025-TC; 85730-TC; 87081-TC; 93307-TC; 97001-TC; 97116-TC; 97530-TC; A4606; A9563; G0480; J1650; J2060; J2405; J3475; J3480; J3490; J7030; J7050; J7060; Z7610

== ENCOUNTER 2018-09-14 06:50 | Emergency (ER) | payer MEDICAID ==
[~2018-09-14] VITALS: Ht 170.2 cm; Wt 68.0 kg
[~2018-09-14 06:50] MED LIST changes: -AMLO10TA2 PO; -BACL10TA PO; +BUPR75TA8 PO; -CYAN500T4 PO; -DOCU-25 PO; -HYDR-4076 PO; -HYDR25TA4 PO; +METO-357 PO; +NIFE30TA91 PO; +PANT40TA4 PO
[2018-09-14] MEDS ORDERED: ONDANSETRON HCL/PF 4 MG/2 ML VIAL IVP ONE (07:00)
[2018-09-14] MEDS ORDERED: IV NS 0.9% 500 ML BAG IV ONE (07:00)
--- NOTE | 2018-09-14 07:00 | NUR ---
RYAN FROM HOME FOR CP; PT AAOX4, PT ON MONITOR, PT AMBULATORY, VSS, NAD NOTED, PENDING MD AL
[2018-09-14] MEDS ORDERED: ONDANSETRON HCL/PF 4 MG/2 ML VIAL ONE (07:05)
[2018-09-14 07:42] LABS: MEAN CORPUSCULAR VOLUME 102 fL (82-100); WHITE BLOOD COUNT (AUTO) 7.5 K/uL (4.3-11.0)
[2018-09-14 07:44] LABS: BASOPHILS # (AUTO) 0.1 /CMM (0.0-0.2); BASOPHILS % (AUTO) 1.2 % (0.0-2.0); EOSINOPHILS % (AUTO) 1.4 % (0.0-6.0); HEMATOCRIT 45 % (33-45); HEMOGLOBIN 15.6 g/dL (11.5-14.8); LYMPHOCYTES # (AUTO) 0.7 /CMM (0.8-4.8); LYMPHOCYTES % (AUTO) 9.6 % (20.0-44.0); MEAN CORPUSCULAR HGB CONC 34 g/dl (31.0-36.0); MONOCYTES # (AUTO) 0.4 /CMM (0.1-1.30); MONOCYTES % (AUTO) 4.7 % (2.0-12.0); NEUTROPHILS # (AUTO) 6.2 /CMM (1.8-8.9); NEUTROPHILS % (AUTO) 83.1 % (43.0-81.0); PLATELET COUNT (AUTO) 215 /CMM (150-450); RED BLOOD CELL COUNT(AUTO) 4.44 MIL/uL (4.0-5.2)
[2018-09-14 07:47] LABS: CALCIUM, SERUM 8.8 mg/dL (8.5-10.1); CARBON DIOXIDE 19 mmol/L (21-32); CHLORIDE 99 mmol/L (98-107); CREATININE 0.6 mg/dL (0.6-1.3); GLUCOSE 120 mg/dL (74-106); POTASSIUM 3.9 mmol/L (3.5-5.1); SODIUM SERUM 135 mmol/L (136-145); UREA NITROGEN, BLOOD 12 mg/dL (7-18)
[2018-09-14 07:53] LABS: ALANINE AMINOTRANSFERASE 72 U/L (12-78); ALBUMIN 4.4 g/dL (3.4-5.0); ALKALINE PHOSPHATASE 89 U/L (46-116); ASPARTATE AMINOTRANSFERASE 95 U/L (15-37); BILIRUBIN,DIRECT 0.1 mg/dL (0.0-0.2); BILIRUBIN,TOTAL 0.4 mg/dL (0.2-1.0); LIPASE 146 U/L (73-393); TOTAL PROTEIN, SERUM 7.2 g/dL (6.4-8.2)
[2018-09-14 08:00] LABS: BILIRUBIN,URINE SMALL (NEGATIVE); BLOOD, URINE Negative Ery/uL (NEGATIVE); COLOR,URINE Yellow (YELLOW); KETONES,URINE Negative (NEGATIVE); LEUKOCYTE ESTERASE ,URINE Negative (NEGATIVE); NITRITE, URINE Negative (NEGATIVE); PH,URINE 5.5 (5.0-8.0); PROTEIN,URINE >=300 mg/dl (NEGATIVE); UGLUCOSE Negative (NEGATIVE); UROBILINOGEN,URINE 0.2 EU/dL (0.2)
[2018-09-14 08:01] LABS: APPEARANCE,URINE Clear (CLEAR)
[2018-09-14] MEDS ORDERED: MORPHINE SULFATE INJ 4 MG/ML DISP.SYRIN ONE ×2 (08:12→11:53)
[2018-09-14] MEDS ORDERED: MORPHINE SULFATE INJ 2 MG/ML DISP.SYRIN IV ONE ×2 (08:30→12:00)
--- NOTE | 2018-09-14 08:47 | NUR ---
SHAQUILLE MICHELLE CM CALLED TO SPEAK TO MAGDALENA MCCOY
[2018-09-14] MEDS ORDERED: FLUT100D IH (09:13)
[2018-09-14] MEDS ORDERED: SUMA100T16 PO (09:13)
[2018-09-14] MEDS ORDERED: ALBU18HF2 IH (09:13)
[2018-09-14] MEDS ORDERED: FLEC100T2 PO (09:13)
[2018-09-14] MEDS ORDERED: SUCR1TAB PO (09:13)
[2018-09-14] MEDS ORDERED: ASPI-1165 PO (09:13)
[2018-09-14] MEDS ORDERED: LORAZEPAM INJ 2 MG/ML VIAL ONE (09:21)
[2018-09-14] MEDS ORDERED: ASPIRIN 325 MG TABLET ONE (09:21)
[2018-09-14] MEDS ORDERED: ASPIRIN 325 MG TABLET PO ONE (09:30)
[2018-09-14] MEDS ORDERED: LORAZEPAM INJ 2 MG/ML VIAL IV ONE (09:30)
[2018-09-14 10:05] VITALS: BP 145/82
--- NOTE | 2018-09-14 11:50 | NUR ---
REPORT GIVEN TO PANKAJ NURSE AT [facility] PT GOING TO ROOM [id number] [phone] CALL FOR REPORT [facility] ETA 30
--- NOTE | 2018-09-14 12:23 | NUR ---
PT LEFT IN STABLE CONDITION FOR TRANSFER; PICKED UP BY [facility]. VSS, NAD NOTED. REPORT GIVEN TO AMBULANCE STAFF.
== END 2018-09-14 12:35 | disposition short-term general hospital (02) ==
LOC: ER 06:51
DX: R07.89 Other chest pain (principal); I48.0 Paroxysmal atrial fibrillation; F10.10 Alcohol abuse, uncomplicated; I10 Essential (primary) hypertension; F32.9 Major depressive disorder, single episode, unspecified; F17.200 Nicotine dependence, unspecified, uncomplicated; Y90.9 Presence of alcohol in blood, level not specified; Z60.2 Problems related to living alone; Z79.82 Long term (current) use of aspirin; Z88.7 Allergy status to serum and vaccine
CPT/HCPCS: 36415; 71045; 74176; 80048; 80076; 81001; 82962; 83690; 84484; 85025; 85730; 93005; 96374; 96375; 96376; 99285; J2060; J2270 ×2; J2405; J7040; 81000-TC

== ENCOUNTER 2020-01-30 08:22 | Emergency (ER) | payer MEDICAID, OTHER ==
[~2020-01-30] VITALS: Ht 160 cm; Wt 61.2 kg
[~2020-01-30 08:22] MED LIST changes: +ALBU18HF2 IH; +ASPI-1165 PO; -BUPR75TA8 PO; +FLEC100T2 PO; -FLUO20CA36 PO; +FLUT100D IH; -NIFE30TA91 PO; -PANT40TA4 PO; +PANT40TA49 PO; +SUCR1TAB PO; +SUMA100T16 PO
--- NOTE | 2020-01-30 08:35 | NUR ---
C/O CHEST PAIN X3 DAYS, PATIENT A/OX4, BREATHING EVEN AND UNLABORED, NO SOB NOTED, NEEDS ATTENDED, CHANGED INTO A GOWN, ATTACHED TO THE CLAM DREDGER.
[2020-01-30 08:39] LABS: BASOPHILS # (AUTO) 0.1 /CMM (0.0-0.2); BASOPHILS % (AUTO) 0.8 % (0.0-2.0); EOSINOPHILS % (AUTO) 1.5 % (0.0-6.0); HEMATOCRIT 44 % (33-45); HEMOGLOBIN 14.9 g/dL (11.5-14.8); LYMPHOCYTES # (AUTO) 3.6 /CMM (0.8-4.8); MEAN CORPUSCULAR HGB CONC 34 g/dl (31.0-36.0); MONOCYTES # (AUTO) 0.8 /CMM (0.1-1.30); MONOCYTES % (AUTO) 6.3 % (2.0-12.0); NEUTROPHILS # (AUTO) 8.7 /CMM (1.8-8.9); NEUTROPHILS % (AUTO) 64.4 % (43.0-81.0); PLATELET COUNT (AUTO) 429 /CMM (150-450); RED BLOOD CELL COUNT(AUTO) 4.31 MIL/uL (4.0-5.2); WHITE BLOOD COUNT (AUTO) 13.5 K/uL (4.3-11.0)
[2020-01-30 08:42] LABS: MEAN CORPUSCULAR VOLUME 103 fL (82-100)
[2020-01-30 09:30] LABS: CALCIUM, SERUM 9.2 mg/dL (8.5-10.1); CARBON DIOXIDE 24 mmol/L (21-32); CHLORIDE 97 mmol/L (98-107); CREATININE 0.8 mg/dL (0.6-1.3); GLUCOSE 84 mg/dL (74-106); POTASSIUM 3.5 mmol/L (3.5-5.1); SODIUM SERUM 134 mmol/L (136-145); UREA NITROGEN, BLOOD 14 mg/dL (7-18)
--- NOTE | 2020-01-30 09:50 | NUR ---
patient ambulatory, urine specimen obtained and sent to lab.
--- NOTE | 2020-01-30 11:53 | NUR ---
Patient a/ox4, ambulatory with steady gait. No dsitress noted, denies pain at this time. IV removed. Catheter intact and site benign. Pressure and 4x4 applied to site. No bleeding noted.Patient discharged to home in stable condition. Written and verbal after care instructions given. Patient verbalizes understanding of instruction.
[2020-01-30 12:19] VITALS: BP 141/60
== END 2020-01-30 11:55 | disposition home or self-care (01) ==
LOC: ER 08:29
DX: R07.89 Other chest pain (principal); I48.0 Paroxysmal atrial fibrillation; I10 Essential (primary) hypertension; Z88.7 Allergy status to serum and vaccine; Z60.2 Problems related to living alone; Z79.82 Long term (current) use of aspirin; Z79.899 Other long term (current) drug therapy
CPT/HCPCS: 36415; 71045-TC; 80048-TC; 80305; 84484-TC; 85025-TC

== ENCOUNTER 2020-02-11 22:57 | Emergency (ER) | payer OTHER, MEDICAID ==
[~2020-02-11] VITALS: Ht 160 cm; Wt 61.7 kg
[2020-02-11 23:15] VITALS: BP 175/68
--- NOTE | 2020-02-11 23:15 | NUR ---
PATIENT CAME TO ER BED 9 BIB RA FROM HOME C/O SHAKING AND PALPITATIONS. PATIENT STATES THAT SHE LAST HAD A DRINK OF VODKA AROUND THE MORNING TIME OF TODAY. PATIENT STATES THAT SHE WAS DRINKING AND SMOKING CIGARETTES FOR A WEEK STRAIGHT BECAUSE SHE WAS STRESSED ABOUT STARTING HER JOB. PATIENT IS AAOX4. NO SOB. BREATHING EVENLY AND UNLABORED ON ROOM AIR. CONNECTED TO THE MONITOR.
--- NOTE | 2020-02-11 23:17 | NUR ---
BLOOD DRAWN AND SENT TO LAB. XRAY AT BEDSIDE.
[2020-02-11] MEDS ORDERED: LORAZEPAM 1 MG TABLET ONE (23:21)
[2020-02-11] MEDS ORDERED: ONDANSETRON HCL/PF 4 MG/2 ML VIAL ONE (23:22)
[2020-02-11 23:29] LABS: BASOPHILS # (AUTO) 0.1 /CMM (0.0-0.2); BASOPHILS % (AUTO) 0.4 % (0.0-2.0); EOSINOPHILS % (AUTO) 0.7 % (0.0-6.0); HEMATOCRIT 44 % (33-45); HEMOGLOBIN 15.1 g/dL (11.5-14.8); LYMPHOCYTES # (AUTO) 1.8 /CMM (0.8-4.8); LYMPHOCYTES % (AUTO) 13.8 % (20.0-44.0); MEAN CORPUSCULAR HGB CONC 34 g/dl (31.0-36.0); MEAN CORPUSCULAR VOLUME 100 fL (82-100); MONOCYTES # (AUTO) 0.7 /CMM (0.1-1.30); MONOCYTES % (AUTO) 5.3 % (2.0-12.0); NEUTROPHILS # (AUTO) 10.5 /CMM (1.8-8.9); NEUTROPHILS % (AUTO) 79.8 % (43.0-81.0); PLATELET COUNT (AUTO) 469 /CMM (150-450); WHITE BLOOD COUNT (AUTO) 13.1 K/uL (4.3-11.0)
[2020-02-11] MEDS ORDERED: IV NS 0.9% 1,000 ML IV ONE (23:30)
[2020-02-11] MEDS ORDERED: ONDANSETRON HCL/PF - ER 4 MG/2 ML VIAL IV ONE (23:30)
[2020-02-11] MEDS ORDERED: LORAZEPAM 1 MG TABLET PO ONE (23:30)
[2020-02-11 23:55] LABS: CHLORIDE 87 mmol/L (98-107); CREATININE 0.7 mg/dL (0.6-1.3); POTASSIUM 3.2 mmol/L (3.5-5.1); SODIUM SERUM 125 mmol/L (136-145); UREA NITROGEN, BLOOD 8 mg/dL (7-18)
[2020-02-11 23:56] LABS: MAGNESIUM 1.9 mg/dL (1.8-2.4)
[2020-02-12] MEDS ORDERED: POTASSIUM CHLORIDE 20 MEQ TAB.PRT.SR PO ONE ×2 (00:15→00:30)
[2020-02-12] MEDS ORDERED: LORAZEPAM 1 MG TABLET ONE (00:22)
--- NOTE | 2020-02-12 00:24 | NUR ---
COVID SWAB COLLECTED AND SENT TO THE LAB.
[2020-02-12 00:25] LABS: CALCIUM, SERUM 9.6 mg/dL (8.5-10.1); CARBON DIOXIDE 19 mmol/L (21-32); GLUCOSE 104 mg/dL (74-106)
[2020-02-12] MEDS ORDERED: LORAZEPAM 1 MG TABLET PO ONE ×2 (00:30→04:00)
--- NOTE | 2020-02-12 01:13 | NUR ---
PATIENT AMBULATED TO THE RESTROOOM WITH A STEADY GAIT.
[2020-02-12 02:33] LABS: ALBUMIN 4.2 g/dL (3.4-5.0); BILIRUBIN,DIRECT 0.1 mg/dL (0.0-0.2); BILIRUBIN,TOTAL 0.2 mg/dL (0.2-1.0); TOTAL PROTEIN, SERUM 7.9 g/dL (6.4-8.2)
[2020-02-12] MEDS ORDERED: ACETAMINOPHEN 325 MG TABLET PO ONE (03:00)
--- NOTE | 2020-02-12 03:14 | NUR ---
PATIENT STATES THAT SHE WOULD LIKE TO LEAVE AMA. IS NOTIFIED.
[2020-02-12] MEDS ORDERED: ACETAMINOPHEN 325 MG TABLET ONE (03:19)
--- NOTE | 2020-02-12 03:44 | NUR ---
IV removed. Catheter intact and site benign. Pressure and 4x4 applied to site. No bleeding noted.
--- NOTE | 2020-02-12 03:48 | NUR ---
Patient does not wish to proceed with medical care recommended by Dr. Mercado. Patient given information related to possible complications, up to and including , which could occur as a result of leaving the hospital at this time. Patient verbalizes understanding of risks involved due to leaving against medical advice. Patient has signed AMA form.
== END 2020-02-12 04:10 | disposition left against medical advice (07) ==
LOC: ER 22:58
DX: E87.1 Hypo-osmolality and hyponatremia (principal); E87.6 Hypokalemia; F10.239 Alcohol dependence with withdrawal, unspecified; Y90.0 Blood alcohol level of less than 20 mg/100 ml; F17.200 Nicotine dependence, unspecified, uncomplicated; Z88.0 Allergy status to penicillin; R94.31 Abnormal electrocardiogram [ECG] [EKG]; Z20.828 Contact with and (suspected) exposure to other viral communicable diseases
CPT/HCPCS: 36415; 71045; 80048; 80076; 80307; 83690; 83735; 84484; 85025; 85730; 87081; 87426; 93005; 96361; 96374; 99291; J2405; J7030; C9803-CS; G0480

== ENCOUNTER 2020-02-21 10:14 | Emergency (ER) | payer OTHER ==
[~2020-02-21] VITALS: Ht 160 cm; Wt 65.8 kg
--- NOTE | 2020-02-21 10:35 | NUR ---
[id number] HOME, DIFFUSE ABDOMINAL PAIN W/ N/V/D X 24 HOURS. PT AAOX4, VSS. RR EVEN & UNLABORED. DENIES CP, SOB, DIZZINESS AT THIS TIME. PT SEEN & EVAL'D BY DR. MOHAN. WILL CONT TO MONITOR.
[2020-02-21] MEDS ORDERED: ONDANSETRON HCL/PF 4 MG/2 ML VIAL ONE (10:38)
[2020-02-21] MEDS ORDERED: MORPHINE SULFATE INJ 4 MG/ML DISP.SYRIN ONE (10:38)
[2020-02-21] MEDS: IV NS 0.9% 1,000 ML BAG IV ONE (10:43)
[2020-02-21] MEDS: ONDANSETRON HCL/PF 4 MG/2 ML VIAL IVP ONE (10:43)
[2020-02-21] MEDS: MORPHINE SULFATE INJ 2 MG/ML DISP.SYRIN IV ONE (10:45)
--- NOTE | 2020-02-21 10:45 | NUR ---
MEDICATED FOR PAIN PER ERMD ORDER, PT CLARK WELL. PT TO CT VIA [facility].
[2020-02-21 11:17] LABS: BASOPHILS # (AUTO) 0.1 /CMM (0.0-0.2); BASOPHILS % (AUTO) 1.1 % (0.0-2.0); EOSINOPHILS % (AUTO) 0.4 % (0.0-6.0); HEMATOCRIT 46 % (33-45); HEMOGLOBIN 15.5 g/dL (11.5-14.8); LYMPHOCYTES # (AUTO) 1.9 /CMM (0.8-4.8); LYMPHOCYTES % (AUTO) 17.8 % (20.0-44.0); MEAN CORPUSCULAR HGB CONC 34 g/dl (31.0-36.0); MEAN CORPUSCULAR VOLUME 100 fL (82-100); MONOCYTES # (AUTO) 0.6 /CMM (0.1-1.30); MONOCYTES % (AUTO) 5.9 % (2.0-12.0); NEUTROPHILS # (AUTO) 8.1 /CMM (1.8-8.9); NEUTROPHILS % (AUTO) 74.8 % (43.0-81.0); PLATELET COUNT (AUTO) 476 /CMM (150-450); RED BLOOD CELL COUNT(AUTO) 4.57 MIL/uL (4.0-5.2); WHITE BLOOD COUNT (AUTO) 10.9 K/uL (4.3-11.0)
[2020-02-21 12:08] LABS: ALANINE AMINOTRANSFERASE 20 U/L (12-78); ALBUMIN 4.1 g/dL (3.4-5.0); ALKALINE PHOSPHATASE 103 U/L (46-116); ASPARTATE AMINOTRANSFERASE 18 U/L (15-37); BILIRUBIN,DIRECT 0.1 mg/dL (0.0-0.2); BILIRUBIN,TOTAL 0.2 mg/dL (0.2-1.0); CALCIUM, SERUM 9.3 mg/dL (8.5-10.1); CARBON DIOXIDE 21 mmol/L (21-32); CHLORIDE 95 mmol/L (98-107); CREATININE 0.7 mg/dL (0.6-1.3); GLUCOSE 87 mg/dL (74-106); LIPASE 99 U/L (73-393); POTASSIUM 3.6 mmol/L (3.5-5.1); SODIUM SERUM 135 mmol/L (136-145); UREA NITROGEN, BLOOD 10 mg/dL (7-18)
[2020-02-21] MEDS ORDERED: PANTOPRAZOLE 40 MG VIAL ONE (12:09)
[2020-02-21] MEDS: PANTOPRAZOLE 40 MG VIAL IV ONE (12:16)
[2020-02-21 12:30] VITALS: BP 131/83
--- NOTE | 2020-02-21 12:30 | NUR ---
PT STABLE, NAD NOTED AT THIS TIME. WILL CONT TO MONITOR.
[2020-02-21 13:05] LABS: APPEARANCE,URINE CLEAR (CLEAR); BILIRUBIN,URINE NEGATIVE (NEGATIVE); BLOOD, URINE NEGATIVE Ery/uL (NEGATIVE); COLOR,URINE YELLOW (YELLOW); KETONES,URINE NEGATIVE (NEGATIVE); LEUKOCYTE ESTERASE ,URINE NEGATIVE (NEGATIVE); NITRITE, URINE NEGATIVE (NEGATIVE); PROTEIN,URINE NEGATIVE (NEGATIVE); UGLUCOSE NEGATIVE (NEGATIVE); UROBILINOGEN,URINE 0.2 EU/dL (0.2)
[2020-02-21] MEDS ORDERED: METO25TA4 PO (14:03)
[2020-02-21] MEDS ORDERED: FLEC50TA3 PO (14:03)
[2020-02-21] MEDS ORDERED: BUDE3CAP8 MT (14:03)
[2020-02-21] MEDS ORDERED: LEVO50TA8 PO (14:03)
[2020-02-21] MEDS ORDERED: UMEC1BLS INH (14:03)
[2020-02-21] MEDS ORDERED: SIMV-46 PO (14:03)
--- NOTE | 2020-02-21 14:08 | NUR ---
PT SIGNED AMA FORM, DR. MOHAN AWARE. IV REMOVED. CATHETER INTACT, APPLIED DRESSING & NO ACTIVE BLEEDING NOTED UPON LEAVING ED.
== END 2020-02-21 14:11 | disposition home or self-care (01) ==
LOC: ER 10:28
DX: K29.80 Duodenitis without bleeding (principal); K29.70 Gastritis, unspecified, without bleeding; F10.10 Alcohol abuse, uncomplicated; K51.90 Ulcerative colitis, unspecified, without complications; I10 Essential (primary) hypertension; I48.91 Unspecified atrial fibrillation; F32.9 Major depressive disorder, single episode, unspecified; F17.200 Nicotine dependence, unspecified, uncomplicated; Z88.0 Allergy status to penicillin; Z88.8 Allergy status to other drugs, medicaments and biological substances; Z60.2 Problems related to living alone; Z79.899 Other long term (current) drug therapy; Z79.82 Long term (current) use of aspirin; Y90.9 Presence of alcohol in blood, level not specified
CPT/HCPCS: 36415; 74176; 80048; 80076; 80305; 80307; 81001; 83690; 84484; 85025; 85730; 93005; 96361; 96374; 96375; 99285; C9113; J2270; J2405; J7030; 81000-TC

== ENCOUNTER 2023-07-25 12:34 | Emergency (ER) | payer OTHER, MEDICAID ==
[~2023-07-25] VITALS: Ht 160 cm; Wt 54.4 kg
[~2023-07-25 12:34] MED LIST changes: +BUDE3CAP8 MT; -FLEC100T2 PO; +FLEC50TA3 PO; +LEVO50TA8 PO; -LORA10CA PO; -METO-357 PO; +METO25TA4 PO; +SIMV-46 PO; -SUMA100T16 PO; -TRAM50TA2 PO; +UMEC1BLS INH
[2023-07-25 13:19] LABS: BASOPHILS % (AUTO) 0.5 % (0.0-2.0); EOSINOPHILS # (AUTO) 0.3 K/uL (0.0-0.7); EOSINOPHILS % (AUTO) 2.8 % (0.0-6.0); HEMATOCRIT 39 % (33-45); HEMOGLOBIN 13.2 g/dL (11.5-14.8); LYMPHOCYTES # (AUTO) 2.4 K/uL (0.8-4.8); LYMPHOCYTES % (AUTO) 26.1 % (20.0-44.0); MEAN CORPUSCULAR HEMOGLOBIN 33 PG (26.0-33.0); MEAN CORPUSCULAR HGB CONC 34 g/dl (31.0-36.0); MEAN CORPUSCULAR VOLUME 97 fL (82-100); MONOCYTES # (AUTO) 0.6 K/uL (0.1-1.30); MONOCYTES % (AUTO) 6.7 % (2.0-12.0); NEUTROPHILS % (AUTO) 63.9 % (43.0-81.0); PLATELET COUNT (AUTO) 297 K/uL (150-450); RED BLOOD CELL COUNT(AUTO) 3.99 MIL/uL (4.0-5.2); RED CELL DISTRIBUTION WIDTH 12.9 % (11.5-15.0); WHITE BLOOD COUNT (AUTO) 9.4 K/uL (4.3-11.0)
[2023-07-25] MEDS ORDERED: IOHEXOL-350 100 ML VIAL IV ONE (13:25)
[2023-07-25] MEDS ORDERED: IV NS 0.9% 250 ML IV ONE (13:25)
[2023-07-25] MEDS ORDERED: CT SWABBABLE VALVE TRANS SET 1 EA INFUS.SET MC ONE (13:25)
[2023-07-25 13:29] LABS: CALCIUM, SERUM 9.1 mg/dL (8.5-10.1); CARBON DIOXIDE 28 mmol/L (21-32); CHLORIDE 107 mmol/L (98-107); CREATININE 0.8 mg/dL (0.6-1.3); GLUCOSE 88 mg/dL (74-106); POTASSIUM 3.8 mmol/L (3.5-5.1); SODIUM SERUM 142 mmol/L (136-145); UREA NITROGEN, BLOOD 12 mg/dL (7-18)
[2023-07-25 13:41] LABS: ALANINE AMINOTRANSFERASE 20 U/L (12-78); ALBUMIN 3.6 g/dL (3.4-5.0); ALKALINE PHOSPHATASE 79 U/L (46-116); ASPARTATE AMINOTRANSFERASE 16 U/L (15-37); BILIRUBIN,DIRECT 0.1 mg/dL (0.0-0.2); BILIRUBIN,TOTAL 0.3 mg/dL (0.2-1.0); NT-PRO BNP 2279 pg/mL (0-125); TOTAL PROTEIN, SERUM 6.6 g/dL (6.4-8.2)
[2023-07-25 15:14] VITALS: BP 145/90; TEMP 98.2; O2SAT 98
== END 2023-07-25 15:15 | disposition home or self-care (01) ==
LOC: ER 12:54
DX: R06.02 Shortness of breath (principal); I10 Essential (primary) hypertension; I48.0 Paroxysmal atrial fibrillation; F32.A Depression, unspecified; Z88.0 Allergy status to penicillin; Z88.8 Allergy status to other drugs, medicaments and biological substances; Z60.2 Problems related to living alone; Z79.899 Other long term (current) drug therapy
CPT/HCPCS: 99285; 71275; 93971; 71045; 93005; 85025; 80048; 80076; 36415; 84484; 83880; J7050; Q9967

== ENCOUNTER 2023-10-05 20:36 | Emergency (ER) | payer OTHER ==
[~2023-10-05] VITALS: Ht 160 cm; Wt 54.9 kg
[2023-10-05 21:26] VITALS: TEMP 98.4
[2023-10-05] MEDS: IBUPROFEN 600 MG TABLET PO ONE (22:00)
[2023-10-05 22:02] LABS: BASOPHILS # (AUTO) 0.1 K/uL (0.0-0.2); BASOPHILS % (AUTO) 1.7 % (0.0-2.0); EOSINOPHILS # (AUTO) 0.2 K/uL (0.0-0.7); EOSINOPHILS % (AUTO) 2.8 % (0.0-6.0); HEMATOCRIT 38 % (33-45); HEMOGLOBIN 12.6 g/dL (11.5-14.8); LYMPHOCYTES # (AUTO) 2.8 K/uL (0.8-4.8); LYMPHOCYTES % (AUTO) 36.6 % (20.0-44.0); MEAN CORPUSCULAR HEMOGLOBIN 33 PG (26.0-33.0); MEAN CORPUSCULAR HGB CONC 34 g/dl (31.0-36.0); MEAN CORPUSCULAR VOLUME 97 fL (82-100); MONOCYTES # (AUTO) 0.7 K/uL (0.1-1.30); MONOCYTES % (AUTO) 8.5 % (2.0-12.0); NEUTROPHILS # (AUTO) 3.9 K/uL (1.8-8.9); NEUTROPHILS % (AUTO) 50.4 % (43.0-81.0); PLATELET COUNT (AUTO) 256 K/uL (150-450); RED BLOOD CELL COUNT(AUTO) 3.85 MIL/uL (4.0-5.2); RED CELL DISTRIBUTION WIDTH 12.9 % (11.5-15.0); WHITE BLOOD COUNT (AUTO) 7.8 K/uL (4.3-11.0)
[2023-10-05 22:18] LABS: CALCIUM, SERUM 8.4 mg/dL (8.5-10.1); CREATININE 0.9 mg/dL (0.6-1.3); POTASSIUM 3.1 mmol/L (3.5-5.1)
[2023-10-05 22:18] LABS: APPEARANCE,URINE Clear (CLEAR); BILIRUBIN,URINE Negative (NEGATIVE); BLOOD, URINE Negative Ery/uL (NEGATIVE); COLOR,URINE LIGHT YELLOW (YELLOW); KETONES,URINE Negative (NEGATIVE); LEUKOCYTE ESTERASE ,URINE Small (NEGATIVE); NITRITE, URINE Negative (NEGATIVE); PH,URINE 6.5 (5.0-8.0); PROTEIN,URINE Negative (NEGATIVE); UGLUCOSE Negative (NEGATIVE); UROBILINOGEN,URINE 0.2 EU/dL (0.2)
[2023-10-05] MEDS ORDERED: IBUPROFEN 600 MG TABLET ONE (22:39)
[2023-10-05] MEDS ORDERED: POTASSIUM CHLORIDE 20 MEQ TAB.PRT.SR PO ONE (22:40)
[2023-10-05] MEDS: POTASSIUM CHLORIDE 20 MEQ TAB.PRT.SR PO ONE (22:44)
[2023-10-05 22:53] LABS: ADD URINE CULTURE YES; BACTERIA,URINE Rare /HPF (None Seen); RBC,URINE 0-2 /HPF (0-2); SQUAMOUS EPITHELIAL CELL,UR Few /HPF (None Seen)
[2023-10-05] MEDS ORDERED: CEFTRIAXONE 1GM BAG (ER ONLY) 50 ML IV ONE (23:29)
[2023-10-05] MEDS: IV NS 0.9% 1,000 ML BAG IV ONE (23:44)
[2023-10-05] MEDS: CEFTRIAXONE 1 G in IV D5W 50 ML IV ONE (23:44)
[2023-10-06 00:03] VITALS: BP 103/60; O2SAT 100
[2023-10-06] MEDS ORDERED: CEFD300C3 PO (01:19)
== END 2023-10-06 01:32 | disposition home or self-care (01) ==
LOC: ER 20:45
DX: N39.0 Urinary tract infection, site not specified (principal); E87.6 Hypokalemia; I10 Essential (primary) hypertension; F32.A Depression, unspecified; I48.20 Chronic atrial fibrillation, unspecified; F17.200 Nicotine dependence, unspecified, uncomplicated; Z79.899 Other long term (current) drug therapy; Z60.2 Problems related to living alone; Z88.0 Allergy status to penicillin
CPT/HCPCS: 99285; 96374; 71045; 93005; 85025; 80048; 81001; 36415; 84484; 87086; J0696 ×2; J7060; A6403